=== PATIENT | female | born 1940 | race Caucasian/White ===

== ENCOUNTER 2019-11-16 08:40 | Outpatient (CLI) | payer MEDICARE, OTHER, SELFPAY ==
[2019-11-16 09:13] LABS: Hemoglobin A1C 6.6 % (<5.7)
[2019-11-16 09:17] LABS: Alanine Aminotransferase 16 U/L (4-35); Albumin Level 4.1 g/dL (3.5-5.1); Alkaline Phosphatase 69 U/L (38-126); Aspartate Amino Transferase 23 U/L (14-36); Bilirubin,Total 0.9 mg/dL (0.2-1.3); Blood Urea Nitrogen 17 mg/dL (7-17); Calcium 9.6 mg/dL (8.4-10.2); Carbon Dioxide 29 mmol/L (22-30); Chloride 103 mmol/L (98-107); Cholesterol 150 mg/dL (0-200); Estimated Glomerular Filt Rate 60; Glucose 107 mg/dL (65-105); HDL Direct 43 mg/dL; Potassium 4.4 mmol/L (3.4-5.0); Sodium 140 mmol/L (137-145); Triglycerides 161 mg/dL (<150)
[2019-11-16 09:29] LABS: LDL Cholesterol Direct 78 mg/dL
[2019-11-16 10:05] LABS: Vitamin D 25 Hydroxy 83.5 ng/mL
== END 2019-11-16 08:41 | disposition home or self-care (01) ==
PROVIDERS: PCP Internal Medicine; Visit Provider Nurse Practitioner
DX: R73.02 Impaired glucose tolerance (oral) (principal); E03.9 Hypothyroidism, unspecified; E78.00 Pure hypercholesterolemia, unspecified; E55.9 Vitamin D deficiency, unspecified
CPT/HCPCS: 36415; 80053; 80061; 82306; 83036; 84443

== ENCOUNTER 2019-12-02 07:44 | Outpatient (CLI) | payer MEDICARE, OTHER, SELFPAY ==
--- NOTE | ~2019-12-02 | DEXA_ITS ---
Bone Density Report Name: Mehnaz Jara Age: 79 Sex: Female Ethnicity: White Date of : 1940 Indication: osteopenia; monitoring treatment; height loss; hysterectomy; postmenopausal Referring Provider: JONELLE ROE Study: Bone densitometry was performed. Exam Date: December 02, 2019 Accession number: [id number] Bone Density: Region BMD T-score Z-score Classification AP Spine (L1, L2, L3) 0.809 -1.9 0.7 Osteopenia Femoral Neck (Left) 0.483 -3.3 -1.0 Osteoporosis Total Hip (Left) 0.699 -2.0 0.1 Osteopenia Total Hip Bilateral Avg 0.732 -1.8 0.4 Osteopenia Femoral Neck (Right) 0.532 -2.9 -0.5 Osteoporosis Total Hip (Right) 0.763 -1.5 0.6 Osteopenia World Health Organization criteria for BMD impression classify patients as: Normal (T-score at or above -1.0), Osteopenia (T-score between -1.0 and -2.5), or Osteoporosis (T-score at or below -2.5). 10-year Fracture Risk: FRAX not reported because: Some T-score for Spine Total or Hip Total or Femoral Neck at or below -2.5 Treated for osteoporosis Previous Exams: Region Exam Age BMD T-score BMD Change BMD Change Date g/cm2 vs Baseline vs Previous AP Spine(L1, L2, L3) 12/02/2019 79 0.809 -1.9 -0.010(-1.2%)# 0.027(3.4%)* 09/25/2015 75 0.782 -2.1 -0.037(-4.5%)# -0.005(-0.6%)# 05/17/2013 73 0.787 -2.1 -0.032(-3.9%)# -0.040(-4.9%)# 02/07/2011 71 0.827 -1.7 0.008(1.0%) 0.008(1.0%) 09/14/2007 67 0.819 -1.8 Total Hip(Left) 12/02/2019 79 0.699 -2.0 -0.013(-1.9%)# -0.016(-2.2%) 09/25/2015 75 0.714 -1.9 0.002(0.3%)# -0.020(-2.8%)# 05/17/2013 73 0.735 -1.7 0.023(3.2%)# 0.018(2.6%)# 02/07/2011 71 0.716 -1.9 0.004(0.6%) 0.004(0.6%) 09/14/2007 67 0.712 -1.9 Total Hip(Right) 12/02/2019 79 0.763 -1.5 0.064(9.2%)# 0.020(2.8%) 09/25/2015 75 0.743 -1.6 0.044(6.3%)# -0.019(-2.5%)# 05/17/2013 73 0.762 -1.5 0.063(9.1%)# 0.068(9.9%)# 02/07/2011 71 0.694 -2.0 -0.005(-0.7%) -0.005(-0.7%) 09/14/2007 67 0.698 -2.0 *Denotes significance at 95% confidence level, LSC for AP Spine = 0.022 g/cm2, LSC for Total Hip = 0.027 g/cm2 Clinical Information Provided by Patient: Is being treated for osteoporosis Has used the following medications: Actonel (i.e. risedronate), Vitamin D, Calcium Has the following medical conditions: Hysterectomy Patient maximum height was 63 Menopause Age: 49 No regular weight bearing exercise Onset of menses at age 13 Number of children 2 ------
== END 2019-12-02 07:45 | disposition home or self-care (01) ==
LOC: ANHIMG 07:49
PROVIDERS: PCP Internal Medicine; Visit Provider Internal Medicine
DX: Z78.0 Asymptomatic menopausal state (principal); M85.852 Other specified disorders of bone density and structure, left thigh; M85.851 Other specified disorders of bone density and structure, right thigh; M85.88 Other specified disorders of bone density and structure, other site
CPT/HCPCS: 77080

== ENCOUNTER 2020-05-30 08:25 | Outpatient (CLI) | payer MEDICARE, OTHER, SELFPAY ==
[2020-05-30 09:06] LABS: Alanine Aminotransferase 21 U/L (4-35); Albumin Level 4.1 g/dL (3.5-5.1); Alkaline Phosphatase 63 U/L (38-126); Anion Gap 6 mmol/L (8-16); Aspartate Amino Transferase 28 U/L (14-36); Blood Urea Nitrogen 19 mg/dL (7-17); Calcium 9.4 mg/dL (8.4-10.2); Carbon Dioxide 30 mmol/L (22-30); Chloride 106 mmol/L (98-107); Cholesterol 147 mg/dL (0-200); Estimated Glomerular Filt Rate > 60; Glucose 128 mg/dL (65-105); HDL Direct 43 mg/dL; Potassium 3.9 mmol/L (3.4-5.0); Sodium 142 mmol/L (137-145); Triglycerides 122 mg/dL (<150)
[2020-05-30 09:15] LABS: Hemoglobin A1C 5.9 % (<5.7)
[2020-05-30 09:17] LABS: LDL Cholesterol Direct 79 mg/dL
== END 2020-05-30 08:26 | disposition home or self-care (01) ==
PROVIDERS: PCP Internal Medicine; Visit Provider Internal Medicine
DX: R73.02 Impaired glucose tolerance (oral) (principal); I10 Essential (primary) hypertension; E03.9 Hypothyroidism, unspecified; E78.5 Hyperlipidemia, unspecified; E55.9 Vitamin D deficiency, unspecified; Z79.899 Other long term (current) drug therapy
CPT/HCPCS: 36415; 80053; 80061; 82306; 83036; 84443

== ENCOUNTER 2020-11-23 09:38 | Outpatient (CLI) | payer MEDICARE, SELFPAY ==
[2020-11-23 10:16] LABS: Hemoglobin A1C 6.1 % (<5.7)
[2020-11-23 10:18] LABS: Alanine Aminotransferase 19 U/L (4-35); Alkaline Phosphatase 63 U/L (38-126); Anion Gap 7 mmol/L (8-16); Aspartate Amino Transferase 29 U/L (14-36); Bilirubin,Total 0.8 mg/dL (0.2-1.3); Blood Urea Nitrogen 13 mg/dL (7-17); Calcium 9.4 mg/dL (8.4-10.2); Carbon Dioxide 28 mmol/L (22-30); Chloride 108 mmol/L (98-107); Cholesterol 140 mg/dL (0-200); Estimated Glomerular Filt Rate 60; Glucose 95 mg/dL (65-105); HDL Direct 47 mg/dL; Sodium 143 mmol/L (137-145); Triglycerides 143 mg/dL (<150)
[2020-11-23 10:28] LABS: LDL Cholesterol Direct 60 mg/dL
== END 2020-11-23 09:39 | disposition home or self-care (01) ==
PROVIDERS: PCP Internal Medicine; Visit Provider Nurse Practitioner
DX: E78.5 Hyperlipidemia, unspecified (principal); R73.02 Impaired glucose tolerance (oral)
CPT/HCPCS: 36415; 80053; 80061; 83036

== ENCOUNTER 2020-12-31 10:59 | Emergency (ER) | payer MEDICARE, SELFPAY ==
[2020-12-31 11:10] VITALS: BP 136/60; PULSE 78; RESP 16; TEMP 36.9; O2SAT 92
[2020-12-31 11:18] VITALS: O2SAT 94
--- NOTE | 2020-12-31 11:20 | ED.GENADULT ---
HPI - General Adult General Chief complaint: Upper Respiratory Infection Stated complaint: cough Time Seen by Provider: 12/31/20 11:17 Source: patient and RN notes reviewed Mode of arrival: ambulatory Limitations: no limitations History of Present Illness HPI narrative: 80-year-old female presents with complains of cough for the past 4 days. Mehnaz reports steady dry cough. Vicks vapor rub without relief. Constant dry cough without chest congestion. No rhinorrhea. Nasal congestion. Denies sore throat. No high fevers, drooling, neck or throat swelling. No chest pain, wheezing, or shortness of breath. Denies nausea, vomiting, and abdominal pain. Tolerating liquids well. Remains active. The patient reports she has not been diagnosed with COVID-19. The patient reports she received 2 Moderna COVID-19 vaccines. The patient reports she is not waiting for the results of a COVID-19 lab test. The patient reports she does not have weakness, fatigue, or myalgia. The patient reports she does not have any loss of taste and diarrhea. Recently travelled to [place]. Denies concerns for COVID-19 or exposures. At this time, the patient is not suspected of having COVID-19. Some parts of this dictation were generated by voice recognition software and may contain typographical and/or grammatical inaccuracies. Related Data Home Medications Medication Instructions Recorded Confirmed cholecalciferol (vitamin D3) 50 2,000 unit PO DAILY 06/15/19 12/31/20 mcg (2,000 unit) tablet uxisgekx-tbk-uvqta acid 0.4 1 tablet PO DAILY 06/15/19 12/31/20 mg-lycopene 300 mcg-lutein 250 mcg tablet vit C,E,zinc,copper-hggac2i 250 1 cap PO DAILY 06/15/19 12/31/20 mg-lutein 5 mg-zeaxanthin 1 mg capsule amlodipine [Norvasc] 10 mg PO DAILY 12/31/20 12/31/20 levothyroxine 1 mcg PO DAILY 12/31/20 12/31/20 rosuvastatin [Crestor] 10 mg PO DAILY 12/31/20 12/31/20 valsartan 1 mg PO DAILY 12/31/20 12/31/20 Allergies Allergy/AdvReac Type Severity Reaction Status Date / Time IWONA Inhibitors Allergy Unknown Cough Verified 12/31/20 11:20 Review of Systems Review of Systems: Narrative: CONSTITUTIONAL: Denies fever, sweats, chills, fatigue. EYES: Denies visual changes, redness, discharge. ENT: Complains of congestion. Denies rhinorrhea, sore throat, otalgia. CARDIOVASCULAR: Denies chest pain, palpitations, edema. RESPIRATORY: Denies dyspnea, wheezing. Complaints of dry cough. GASTROINTESTINAL: Denies abdominal pain, nausea, vomiting, diarrhea. GENITOURINARY: Denies dysuria, hematuria, abnormal discharge. SKIN: Denies rash or itching. MUSCULOSKELETAL: Denies acute back pain, joint pain, or myalgia. NEUROLOGIC: Denies numbness or focal weakness. PSYCHIATRIC: Denies anxiety or depression. All other systems reviewed are negative, except as documented in HPI and below. [facility] Past Medical History Medical History Bronchitis Depression History of blood transfusion HTN (hypertension) Hyperlipidemia Osteoporosis Post-menopausal Surgical History Surgical History History of hysterectomy Status post cervical polyp removal Family History Family History Mother Family history of rheumatoid arthritis Family history of Alzheimer's disease, Onset Age: 92 Family history of malignant neoplasm of breast in first degree relative Patient's mother is Family history of malignant neoplasm of breast Sibling Family history of osteoarthritis Father Family history of Parkinson's disease Other Hypertension Social History Social History Smoking packs per day: 1 Smoking cigarettes per day: 20.0 Years smoked: 60 Smoking pack-years: 60.00 Smoking status: Former smoker Tobacco type: cigarettes Second hand toba
== END 2020-12-31 11:40 | disposition home or self-care (01) ==
PROVIDERS: Emergency Provider Nurse Practitioner Family; PCP Internal Medicine
DX: J40 Bronchitis, not specified as acute or chronic (principal); Z87.891 Personal history of nicotine dependence; I10 Essential (primary) hypertension; E78.5 Hyperlipidemia, unspecified; M81.0 Age-related osteoporosis without current pathological fracture
CPT/HCPCS: 99213; G0463

== ENCOUNTER 2021-01-17 17:06 | Outpatient (CLI) | payer MEDICARE, SELFPAY ==
--- NOTE | ~2021-01-17 | XR_ITS ---
EXAMINATION: XR chest 2V DATE: 01/17/2021 17:31 INDICATION: Cough and congestion. TECHNIQUE: Frontal and lateral views of the chest were obtained. COMPARISON: Chest 2 views 06/03/2019, chest CT 04/21/2015 FINDINGS: There is a calcified pleural plaque in left midlung zone. No pleural effusion or pneumothor ax. The heart size is normal. There are prominent paracardial fat pads. IMPRESSION: 1. No acute cardiopulmonary disease. Reviewed, dictated and finalized at location A.
== END 2021-01-17 17:07 | disposition home or self-care (01) ==
LOC: ANHIMG 17:08
PROVIDERS: PCP Internal Medicine; Visit Provider Nurse Practitioner
DX: R05 Cough (principal); J45.909 Unspecified asthma, uncomplicated
CPT/HCPCS: 71046

== ENCOUNTER 2021-05-25 09:42 | Outpatient (CLI) | payer MEDICARE, SELFPAY ==
[2021-05-25 10:35] LABS: Alanine Aminotransferase 24 U/L (4-35); Albumin Level 4.1 g/dL (3.5-5.1); Alkaline Phosphatase 81 U/L (38-126); Anion Gap 10 mmol/L (8-16); Aspartate Amino Transferase 32 U/L (14-36); Bilirubin,Total 0.6 mg/dL (0.2-1.3); Blood Urea Nitrogen 16 mg/dL (7-17); Calcium 9.1 mg/dL (8.4-10.2); Carbon Dioxide 27 mmol/L (22-30); Chloride 105 mmol/L (98-107); Cholesterol 155 mg/dL (0-200); Estimated Glomerular Filt Rate > 60; Glucose 113 mg/dL (65-110); HDL Direct 40 mg/dL; Potassium 3.7 mmol/L (3.4-5.0); Sodium 142 mmol/L (137-145); Triglycerides 168 mg/dL (<150)
[2021-05-25 10:47] LABS: LDL Cholesterol Direct 75 mg/dL
[2021-05-25 10:53] LABS: Vitamin D 25 Hydroxy 73.2 ng/mL
== END 2021-05-25 09:43 | disposition home or self-care (01) ==
LOC: ANHLAB 09:46
PROVIDERS: PCP Internal Medicine; Visit Provider Internal Medicine
DX: E03.9 Hypothyroidism, unspecified (principal); I10 Essential (primary) hypertension; E55.9 Vitamin D deficiency, unspecified; R73.02 Impaired glucose tolerance (oral); E78.5 Hyperlipidemia, unspecified
CPT/HCPCS: 36415; 80053; 80061; 82306; 83036; 84443

== ENCOUNTER 2021-11-22 13:48 | Emergency (ER) | payer MEDICARE, SELFPAY ==
[2021-11-22] VITALS (21 sets, daily range): BP systolic 152–166; BP diastolic 68–77; PULSE 58–80; RESP 12–28; TEMP 36.4–37.1; O2SAT 92–98
--- NOTE | 2021-11-22 13:58 | ECG_ITS ---
Measurements Intervals [place] Rate: 80 P: 17 NE: 144 QRS: -3 QRSD: 85 T: -4 QT: 321 QTc: 372 Interpretive Statements SINUS RHYTHM NONSPECIFIC ST & T-WAVE ABNORMALITY NO PREVIOUS ECG AVAILABLE FOR COMPARISON Electronically Signed On 11-22-2021 20:38:20 CDT by Nesha Ahuja M.D.
--- NOTE | 2021-11-22 14:00 | PC.NURSE ---
EMS stated that patient had left sided facial droop and slurred speech. in room stating this is her normal speech and presentation. EDP Lisa aware.
--- NOTE | 2021-11-22 14:18 | ED.CHESTPAIN ---
HPI - Chest Pain General Chief Complaint: Nausea/Vomiting/Diarrhea Stated Complaint: n/v/d Time Seen by Provider: 11/22/21 14:06 History of Present Illness HPI narrative: Pt says she has had steady CP since 0700 yesterday. Pt says it has been constant but waxes and wanes in severity. Pt has no cardiac history. Pt also has the shakes and thinks she is withdrawing form alcohol. Pt drinks about a 1/2 bottle of vodka or 8 Truly's a day. Pt did have a drink this morning. Pt has been through rehab in the past and would like help if possible. Pt denies injury. Related Data Home Medications Medication Instructions Recorded Confirmed cholecalciferol (vitamin D3) 50 2,000 unit PO DAILY 06/15/19 05/31/21 mcg (2,000 unit) tablet mvqnjbqj-nke-uqehz acid 0.4 1 tablet PO DAILY 06/15/19 05/31/21 mg-lycopene 300 mcg-lutein 250 mcg tablet (Centrum Silver) vit C,E,zinc,copper-jyxqd6a 250 1 cap PO DAILY 06/15/19 05/31/21 mg-lutein 5 mg-zeaxanthin 1 mg capsule (Ocuvite Adult 50 Plus) Allergies Allergy/AdvReac Type Severity Reaction Status Date / Time IWONA Inhibitors Allergy Unknown Cough Verified 05/31/21 07:50 Review of Systems Review of Systems: All systems reviewed & are unremarkable except as noted in HPI and below PMFSH Past Medical History Medical History Bronchitis Depression History of blood transfusion HTN (hypertension) Hyperlipidemia Osteoporosis Post-menopausal Surgical History Surgical History History of hysterectomy Status post cervical polyp removal Family History Family History Mother Family history of rheumatoid arthritis Family history of Alzheimer's disease, Onset Age: 92 Family history of malignant neoplasm of breast in first degree relative Patient's mother is Family history of malignant neoplasm of breast Sibling Family history of osteoarthritis Father Family history of Parkinson's disease Other Hypertension Social History Social History Smoking packs per day: 1 Smoking cigarettes per day: 20.0 Years smoked: 60 Smoking pack-years: 60.00 Tobacco type: cigarettes Second hand tobacco smoke exposure: Yes Smoking end date: 06/16/94 Alcohol intake: current Alcohol use details: Social Gender identity (if verbalized by the patient): Female Exam Const: General: healthy appearing and no acute distress Nutritional Appearance: well nourished Orientation/consciousness: patient oriented x3 Limitations: no limitations HENMT: Head: normal to inspection Eyes: Conjunctivae: conjunctivae normal Pupils: Equal, round and reactive pupils present EOM: EOMs intact bilaterally Neck: Neck: normal visual inspection Chest: Chest palpation & inspection: normal inspection of the chest Resp: Effort & Inspection: normal respiratory effort Auscultation: clear to auscultation bilaterally Cardio: Rate: tachycardic Rhythm: regular rhythm GI: GI Palp: Yes Soft to palpation Auscultation: normal bowel sounds Skin: General skin exam: normal color Rashes: no rashes Neuro: General: patient oriented x3, moves all extremities, no meningeal signs, no focal motor deficits and CN's II-XI intact bilaterally Cranial nerves: Yes Nystagmus not present Speech: normal speech Gait exam (Neuro): Normal gait present Extrem: General: normal to inspection and no clubbing, cyanosis or edema Other: some bruising to legs Psych: Mental Status: mental status grossly normal Affect: Anxious affect present Attitude: cooperative Course Vital Signs Vital signs: Vital Signs Temperature 97.6 F 11/22/21 13:51 Pulse Rate 80 11/22/21 13:51 Respiratory Rate 20 11/22/21 13:51 Pulse Oximetry 92 11/22/21 13:51 Oxygen Delivery Room Air 11/22/21
--- NOTE | 2021-11-22 14:33 | ED.NAVMDI ---
HPI - Nausea/Vomiting/Diarrhea General Chief complaint: Nausea/Vomiting/Diarrhea Stated complaint: n/v/d Time Seen by Provider: 11/22/21 14:06 History of Present Illness HPI Narrative: Pt presents with numerous episodes of vomiting and diarrhea since last night. Pt denies fever or urinary symptoms. Pt has some intermittent abdominal cramping but none now. Related Data Home Medications Medication Instructions Recorded Confirmed cholecalciferol (vitamin D3) 50 2,000 unit PO DAILY 06/15/19 05/31/21 mcg (2,000 unit) tablet uwdnbofx-xxj-snojc acid 0.4 1 tablet PO DAILY 06/15/19 05/31/21 mg-lycopene 300 mcg-lutein 250 mcg tablet (Centrum Silver) vit C,E,zinc,copper-giefo4s 250 1 cap PO DAILY 06/15/19 05/31/21 mg-lutein 5 mg-zeaxanthin 1 mg capsule (Ocuvite Adult 50 Plus) Allergies Allergy/AdvReac Type Severity Reaction Status Date / Time IWONA Inhibitors Allergy Unknown Cough Verified 05/31/21 07:50 Review of Systems Review of Systems: All systems reviewed & are unremarkable except as noted in HPI and below PMFSH Past Medical History Medical History Bronchitis Depression History of blood transfusion HTN (hypertension) Hyperlipidemia Osteoporosis Post-menopausal Surgical History Surgical History History of hysterectomy Status post cervical polyp removal Family History Family History Mother Family history of rheumatoid arthritis Family history of Alzheimer's disease, Onset Age: 92 Family history of malignant neoplasm of breast in first degree relative Patient's mother is Family history of malignant neoplasm of breast Sibling Family history of osteoarthritis Father Family history of Parkinson's disease Other Hypertension Social History Social History Smoking packs per day: 1 Smoking cigarettes per day: 20.0 Years smoked: 60 Smoking pack-years: 60.00 Tobacco type: cigarettes Second hand tobacco smoke exposure: Yes Smoking end date: 06/16/94 Alcohol intake: current Alcohol use details: Social Gender identity (if verbalized by the patient): Female Exam Const: General: healthy appearing and no acute distress Nutritional Appearance: well nourished Orientation/consciousness: patient oriented x3 Limitations: no limitations HENMT: Mouth: Yes Normal oral and palatal mucosa present Resp: Effort & Inspection: normal respiratory effort Auscultation: clear to auscultation bilaterally Cardio: Rate: regular rate Rhythm: regular rhythm GI: GI Palp: Yes Soft to palpation Auscultation: normal bowel sounds Skin: General skin exam: normal color Rashes: no rashes Wounds: no wounds Neuro: General: patient oriented x3, moves all extremities, no meningeal signs, no focal motor deficits and CN's II-XI intact bilaterally Cranial nerves: Yes Nystagmus not present Speech: normal speech Extrem: General: normal to inspection Psych: Mental Status: mental status grossly normal Affect: normal affect Attitude: cooperative Course Vital Signs Vital signs: Vital Signs Temperature 97.6 F 11/22/21 13:51 Pulse Rate 80 11/22/21 13:51 Respiratory Rate 20 11/22/21 13:51 Pulse Oximetry 92 11/22/21 13:51 Oxygen Delivery Room Air 11/22/21 13:51 Temperature 98.7 F 11/22/21 18:41 Pulse Rate 74 11/22/21 18:41 Respiratory Rate 17 11/22/21 18:41 Blood Pressure 152/68 H 11/22/21 18:41 Pulse Oximetry 94 11/22/21 18:41 Oxygen Delivery Room Air 11/22/21 17:04 Oxygen Flow Rate 2 11/22/21 14:00 MDM - Nausea/Vomiting/Diarrhea Lab Data Result diagrams: 11/22/21 16:05 11/22/21 16:05 Labs: Lab Results 11/22/21 11/22/21 11/22/21 Range/Units 15:18 16:05 16:05 WBC 17.2 H (4.
[2021-11-22 15:27] LABS: Appearance Urine Clear (Clear); Bilirubin Urine Negative (Negative); Blood Urine 1+ (Negative); Color Urine Yellow (Yellow); Glucose Urine UA Negative (Negative); Ketones Urine 3+ mg/dL (Negative); Leukocyte Esterase Ur Trace LEU/UL (Negative); Nitrate Urine Positive (Negative); Protein Urine 2+ mg/dL (Negative); Urobilinogen Urine 0.2 mg/dL (<2.0)
[2021-11-22 15:36] LABS: Add Urine Microscopic? YES; Bacteria Urine Trace /hpf; Mucus Urine Rare /lpf; WBC Urine 16-20 /hpf
[2021-11-22 16:22] LABS: Basophils Percent Auto 0.2 % (0.2-1.2); Hematocrit 45.9 % (37.0-47.0); Immature Granulocyte Percent A 0.6 % (0-0.5); Lymphocytes Absolute Auto 0.85 K/mm3 (0.9-3.2); Lymphocytes Percent Auto 4.9 % (18.3-44.2); Mean Corpuscular HGB Conc 32.7 g/dl (32-36); Mean Corpuscular Hemoglobin 29.4 pg (26-34); Mean Platelet Volume 11.4 fl (7.4-10.4); Monocytes Absolute Auto 0.8 K/mm3 (0.1-0.6); Monocytes Percent Auto 4.8 % (2.6-8.5); Neutrophils Absolute Auto 15.4 K/mm3 (1.3-6.7); Neutrophils Percent Auto 89.5 % (45.5-73.1); Platelet Count Result 240 k/mm3 (150-375); Red Cell Distribution Width 14.8 % (11.5-14.5); White Blood Count 17.2 K/mm3 (4.5-10.0)
[2021-11-22 16:36] LABS: Alanine Aminotransferase 18 U/L (6-35); Albumin Level 4.8 g/dL (3.5-5.1); Alkaline Phosphatase 84 U/L (38-126); Anion Gap 9 mmol/L (8-16); Aspartate Amino Transferase 37 U/L (14-36); Bilirubin,Total 1.1 mg/dL (0.2-1.3); Blood Urea Nitrogen 14 mg/dL (7-17); Calcium 9.2 mg/dL (8.4-10.2); Carbon Dioxide 27 mmol/L (22-30); Chloride 103 mmol/L (98-107); Estimated CRCL calculation 58 ml/min; Estimated Glomerular Filt Rate > 60; Glucose 136 mg/dL (65-110); Lipase 95 U/L (23-300); Potassium 3.6 mmol/L (3.4-5.0); Sodium 139 mmol/L (137-145)
[2021-11-22] MEDS: SODIUM CHLORIDE 0.9% IV 1,000 ML 999 ML IV CONT (17:02)
[2021-11-22] MEDS: ONDANSETRON INJ 4 MG/2 ML VIAL IV PUSH (17:02)
== END 2021-11-22 18:51 | disposition home or self-care (01) ==
PROVIDERS: Emergency Medicine; Emergency Provider Emergency Medicine; PCP Internal Medicine
DX: K52.9 Noninfective gastroenteritis and colitis, unspecified (principal); I10 Essential (primary) hypertension; E78.5 Hyperlipidemia, unspecified; F17.210 Nicotine dependence, cigarettes, uncomplicated
CPT/HCPCS: 36415; 51701; 80053; 81001; 83690; 85025; 87086; 87147; 87181; 87186; 93005; 96361; 96374; 99284; J2405; J7030

== ENCOUNTER 2022-01-18 11:37 | Outpatient (NON) | payer MEDICARE, SELFPAY ==
[2022-01-18 12:11] LABS: Appearance Urine Turbid (Clear); Bilirubin Urine Negative (Negative); Blood Urine 1+ (Negative); Color Urine Yellow (Yellow); Glucose Urine UA Negative (Negative); Ketones Urine Negative (Negative); Leukocyte Esterase Ur 3+ LEU/UL (Negative); Nitrate Urine Negative (Negative); Protein Urine 2+ mg/dL (Negative); Urobilinogen Urine 0.2 mg/dL (<2.0); pH Urine 7.5 (5.0-9.0)
[2022-01-18 12:19] LABS: Bacteria Urine 3+ /hpf; Mucus Urine Rare /lpf; Squamous Epithelial Cell Urine Occasional /hpf (Few); Transitional Epi Cells Urine Rare /hpf (None Seen); WBC Clumps Urine Present /HPF; WBC Urine >75 /hpf
[2022-01-18 12:48] LABS: Add Urine Microscopic? YES
== END 2022-01-18 11:38 | disposition home or self-care (01) ==
PROVIDERS: PCP Internal Medicine; Visit Provider Internal Medicine
DX: R30.0 Dysuria (principal)
CPT/HCPCS: 81001; 87077; 87086; 87186

== ENCOUNTER 2022-03-20 08:00 | Outpatient (CLI) | payer MEDICARE, SELFPAY ==
[2022-03-20 08:39] LABS: Alanine Aminotransferase 17 U/L (6-35); Alkaline Phosphatase 75 U/L (38-126); Anion Gap 9 mmol/L (8-16); Aspartate Amino Transferase 25 U/L (14-36); Bilirubin,Total 1.2 mg/dL (0.2-1.3); Blood Urea Nitrogen 12 mg/dL (7-17); Calcium 9.5 mg/dL (8.4-10.2); Carbon Dioxide 30 mmol/L (22-30); Chloride 100 mmol/L (98-107); Cholesterol 168 mg/dL (0-200); Estimated Glomerular Filt Rate > 60; Glucose 105 mg/dL (65-110); HDL Direct 39 mg/dL; Potassium 3.9 mmol/L (3.4-5.0); Sodium 139 mmol/L (137-145); Triglycerides 185 mg/dL (<150)
[2022-03-20 08:40] LABS: Hemoglobin A1C 5.9 % (<5.7)
[2022-03-20 08:51] LABS: LDL Cholesterol Direct 86 mg/dL
== END 2022-03-20 08:01 | disposition home or self-care (01) ==
PROVIDERS: PCP Internal Medicine; Visit Provider Internal Medicine
DX: E03.9 Hypothyroidism, unspecified (principal); R73.02 Impaired glucose tolerance (oral); E78.5 Hyperlipidemia, unspecified; R60.9 Edema, unspecified
CPT/HCPCS: 36415; 80053; 80061; 83036; 84443

== ENCOUNTER 2022-07-22 07:30 | Outpatient (RCR) | payer MEDICARE, SELFPAY ==
--- NOTE | 2022-04-25 11:32 | OTOPEVAL1 ---
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 Patient spent several days at a [facility] then went home and began home health until a week ago. Patient reports L arm has little control and is difficult to complete functional and daily tasks such as tear toilet paper, grasp items, holding onto items. Patient reports wants to be able to get back to cooking and baking tasks. Reported Pain Level Pain Score 0: Self Report Assessment OT Clinical Summary Mehnaz is a 82 year old female who presents to Outpatient OT following a CVA in October 2021. Patient reports decreased control of L UE which causes difficulties with functional and daily tasks such as cooking. Patient demonstrated decreased strength in L UE, decreased coordination measured through the 9-hole peg test. Patient would benefit from skilled OT for UE strengthening, fine/gross motor coordination tasks, HEP instruction in order to optimize functional use of L UE. Plan of Care Interventions Therapeutic Exercise,Neuro Re-education, Therapeutic Activities,Self-Care/Home Management OT Services Indicated Yes Treatment Frequency and 1x/week for 4 weeks Duration These treatments will address the objective and functional deficits as defined above. The patient will be advanced safely and appropriately in order for the patient to progress towards his/her prior level of function. Additional exercises will be introduced and as well as a comprehensive home exercise program upon discharge, if needed, ?to ensure carryover of functional gains achieved in the clinic. This treatment plan has been reviewed and agreement upon by the patient.
--- NOTE | 2022-04-25 14:52 | STOPEVAL1 ---
Assessment and note entered by Janis Chow [employer] Evaluation Information Assessment Status Evaluation Assessment Status Evaluation Subjective Information Patient reported that she feels she is doing well. stated that he was told by OT that Speech Therapy would be able to help patient to remember to move her left leg forward when walking. Reported Pain Level Pain Score 0: Self Report Pain Score 0: Self Report Assessment ST Clinical Summary This 82 year old female patient was seen for a Cognitive Evaluation following CVA resulting in cognitive/memory deficits. Patient had received Home Health services including Speech Therapy for orientation/memory. They report they feel she made great progress during her home health episode. She returned today for PT/OT/ST evaluations. reports that they were told that patient is able to lift her leg and move it forward when sitting and exercising but that maybe she is not able to remember to move her leg forward or the messages between her brain and leg are not connecting to assist with walking. Today the patient performed at 90% or better for immediate memory including reciting number series, following complex directions, and recalling information in short stories, problem solving, sequencing, and sorting/categorizing words, and functional math. Patient will be seen twice weekly for four weeks to address Orientation to Time and Place. This was addressed in the home setting and therapist had requested family either give patient access to a calendar or white board that can be updated daily in large print as patient was having visual difficulties. Family often remembered to update the white board and patient would be dependent upon it, but oriented to time. When family did not update the white board, patient would assume the date that was present was correct. Today the patient knew the day of the week and the year, eventually self-correcting the month but not aware of the actual date. This will be addressed in future sessions in order to assist with independent orientation to time. Therapy will also focus on increasing use of memory strategies and environmental cues
--- NOTE | 2022-04-25 15:20 | PTOPEVAL1 ---
Assessment and note entered by Fabrice Garcia, PT Evaluation Information Assessment Status Evaluation Diagnosis non-traumatic intracranial hemorrhage Onset 11/04 Subjective Information Patient reports she has been doing well with her home health, but needs to be able to move around more and walk and do transfers without her helping her as much. Reported Pain Level Pain Score 0: Self Report Pain Score 0: Self Report Pain Score 0: Self Report Assessment PT Clinical Summary Mehnaz is an 82 year old female coming into the clinic for functional mobility and strengthening after a CVA in October of this year. Patient is currently mainly getting around in a WC with pushing her and helping with transfers. Patient only walking 8 feet with next to her and a WC follow. Patient has weakness in the L ankle invertors, decreased balance and endurance and in walking decreased stride length of the L LE and no heel strike. Patient should benefit from skilled physical therapy for ankle strengthening, balance and endurance training, along with gait and transfer training. Patient and could also use education on transfers and body mechanics. Plan of Care Interventions Electrical Stimulation,Gait Training,Manual Therapy,Neuro Re-education,Patient/Caregiver Education,Therapeutic Activities,Therapeutic Exercise PT Services Indicated Yes Treatment Frequency and 2x/wk for 4 weeks Duration These treatments will address the objective and functional deficits as defined above. The patient will be advanced safely and appropriately in order for the patient to progress towards his/her prior level of function. Additional exercises will be introduced and as well as a comprehensive home exercise program upon discharge, if needed, ?to ensure carryover of functional gains achieved in the clinic. This treatment plan has been reviewed and agreement upon by the patient.
--- NOTE | 2022-05-20 09:54 | OTOPPROG ---
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 Patient has attended Outpatient OT for x4 weeks. Patient reports L arm has a little more control than the start of OT, reports does not feel like she will wack people as much. Patient reports it is starting to get easier to use L hand such as tearing toilet paper. Assessment OT Clinical Summary Mehnaz is a 82 year old female who presents to Outpatient OT for a re-evaluation following a CVA in October 2021. Patient reports feels some increased strength in L arm and some daily tasks are easier to complete with L hand. Patient demonstrated improvements with L UE strength, pin or clip fastener/lateral pinch strength. Patients fine motor coordination measured through 9-hole peg test decreased by 4 seconds. Patient would benefit from continued skilled OT for UE strengthening, fine/gross motor coordination tasks, HEP instruction in order to optimize functional use of L UE. Plan of Care Interventions Therapeutic Exercise,Neuro Re-education, Therapeutic Activities,Self-Care/Home Management OT Services Indicated Yes Treatment Frequency and 1x/week for 4 weeks Duration These treatments will address the objective and functional deficits as defined above. The patient will be advanced safely and appropriately in order for the patient to progress towards his/her prior level of function. Additional exercises will be introduced and as well as a comprehensive home exercise program upon discharge, if needed, ?to ensure carryover of functional gains achieved in the clinic. This treatment plan has been reviewed and agreement upon by the patient.
--- NOTE | 2022-05-22 13:13 | PTOPREEVAL ---
Assessment and note entered by Fabrice Garcia, PT Evaluation Information Assessment Status Re-evaluation Diagnosis non-traumatic intracranial hemorrhage Onset October 2021 Subjective Information Patient reports her L hand and foot still do not want to cooperate with her as well as she would like, She does reports she is doing more with her exercises and getting around her help although she still needs her husbands help. Reported Pain Level Pain Score 0: Self Report Assessment PT Clinical Summary Mehnaz has been coming to physical therapy since April 25. She has attended 7 visits along with sessions with occupational and speech therapy . She has met walking distance goal and L ankle strength goal. Patient and has new goals to help her go to the [employer] and go to and from the bathroom with less assistance. I believe that those goals are attainable and will provide the patient with better quality of life. Plan of Care Interventions Electrical Stimulation,Gait Training,Manual Therapy,Neuro Re-education,Patient/Caregiver Education,Therapeutic Activities,Therapeutic Exercise,Ultrasound PT Services Indicated Yes Treatment Frequency and 2x/wk for 4 weeks Duration These treatments will address the objective and functional deficits as defined above. The patient will be advanced safely and appropriately in order for the patient to progress towards his/her prior level of function. Additional exercises will be introduced and as well as a comprehensive home exercise program upon discharge, if needed, ?to ensure carryover of functional gains achieved in the clinic. This treatment plan has been reviewed and agreement upon by the patient.
--- NOTE | 2022-05-22 13:27 | STOPDC ---
Assessment and note entered by JACQUELIN Hernandez Evaluation Information Assessment Status Discharge Assessment Status Re-evaluation Reported Pain Level Pain Score 0: Self Report Pain Score 0: Self Report Assessment ST Clinical Summary TREATMENT NOTE AND DISCHARGE SUMMARY This patient was seen fro a final treatment session focusing on memory, temporal orientation, and attention to tasks. Patient was cooperative with all therapy tasks and continued to make progress until discharge. She achieved all goals for temporal orientation, only having difficulty recalling the exact time from beginning to end of session, for example. Patient also exhibited good ability to focus on a task with distraction by therapist and to be able to divide attention between two tasks. Of note was increased response time required when being distracted or asked to switch attention from one task to another. Patient is being discharged with all goals achieved and minimal to no cueing/assistance required by therapist. Plan of Care ST Services Indicated No
--- NOTE | 2022-06-18 12:44 | OTOPDC ---
Assessment and note entered by KOFI Torres/Dom Evaluation Information Assessment Status Discharge Diagnosis CVA Subjective Information Patient presents to OT after a CVA in October 2021 with L side deficits. Patient reports L arm is less violent able to control L UE easier with daily tasks such as making the bed, assisting with folding laundry is becoming easier. Patient reports using L UE for functional tasks has become much easier including donning pants, donning shoes is easier. Reported Pain Level Pain Score 1: Self Report Assessment OT Clinical Summary Mehnaz is a 82 year old female who presents to Outpatient OT for a re-evaluation following a CVA in October 2021. Patient reports functional use of L UE has improved significantly with daily tasks. Patient demonstrated improvements with L UE strength, can filler/richardson pinch strength. Patients fine motor coordination measured through 9-hole peg test improved from 73 seconds to 58 seconds. Patient is pleased with progress through OT. Plan is to discharge patient today from skilled OT with patient independent with HEP. Plan of Care OT Services Indicated No
--- NOTE | 2022-06-20 16:06 | PTOPREEVAL ---
Assessment and note entered by Fabrice Garcia, PT Evaluation Information Assessment Status Re-evaluation Diagnosis non-traumatic intracranial hemorrhage Onset October 2021 Subjective Information Patient and report she is walking more in their home with the walker although the still brings the walker behind her. They even tried walking hand hold only. That did not go well and was a MAX A effort for both of them. Patient reports she still has not made it to her hair salon yet, which was her goal for last re- evaluation. Reported Pain Level Pain Score 0: Self Report Assessment PT Clinical Summary Mehnaz has been coming to the clinic for weakness and decreased functional mobility since 04/25/22. Starting with walking 8 feet MOD A patient has progressed to walking almost community ambulation distances at [facility] and standby assistance. I feel she has made good improvements, but needs to improve endurance and work more on caregiver training during session to have him walk and work with patient for progression to home exercise program. Plan of Care Interventions Electrical Stimulation,Gait Training,Hot Pack/Cold Pack,Manual Therapy,Neuro Re-education,Patient/ Caregiver Education,Therapeutic Activities, Therapeutic Exercise PT Services Indicated Yes Treatment Frequency and 2x/wk for 4 weeks Duration These treatments will address the objective and functional deficits as defined above. The patient will be advanced safely and appropriately in order for the patient to progress towards his/her prior level of function. Additional exercises will be introduced and as well as a comprehensive home exercise program upon discharge, if needed, ?to ensure carryover of functional gains achieved in the clinic. This treatment plan has been reviewed and agreement upon by the patient.
== END 2022-07-24 23:59 | disposition home or self-care (01) ==
LOC: ANHPT 07:30
PROVIDERS: PCP Internal Medicine; Visit Provider Internal Medicine
DX: I61.4 Nontraumatic intracerebral hemorrhage in cerebellum (principal); I69.311 Memory deficit following cerebral infarction; I69.319 Unspecified symptoms and signs involving cognitive functions following cerebral infarction
CPT/HCPCS: 92507; 92523; 97110; 97112; 97116; 97161; 97165; 97530

== ENCOUNTER 2022-08-15 10:00 | Outpatient (RCR) | payer MEDICARE, SELFPAY ==
--- NOTE | 2022-08-15 12:22 | PTOPDC ---
Assessment and note entered by Fabrice Garcia, PT Evaluation Information Assessment Status Discharge Diagnosis Non-Traumatic intracranial hemorrhage Onset October 2021 Subjective Information Patient and reports that she is still having trouble with getting in and out of bed, pulling up and down pants in bathroom. Patient is walking more and her hairstylist can do a home visit to cut her hair. Reported Pain Level Pain Score 0: Self Report Assessment PT Clinical Summary Patient started therapy back in March of 2022 and progressed from walking 8' MAX A to ambulating 200'+ with CGA and wheeled walker. Patient has made a lot of progress and met all of her goals. Patient's main issue now is that her and her report issues doing activities at home and when doing them here she is standby, but at home is MOD A. I feel it is a good time to discharge her from outpatient physical therapy and go back to home health to work on house specific issues as we cannot reproduce them here. I think she can become standby in the house which would take a lot of stress off of her and also that would give her more independence and privacy that she wants. Discharged from skilled outpatient physical therapy at this time. Recommend Home health physical and occupational therapy. Plan of Care PT Services Indicated No Treatment Frequency and discharged form skilled physical therapy. Duration
== END 2022-10-14 10:42 | disposition home or self-care (01) ==
LOC: ANHPT 10:00
PROVIDERS: PCP Internal Medicine; Visit Provider Internal Medicine
DX: I61.4 Nontraumatic intracerebral hemorrhage in cerebellum (principal); I69.311 Memory deficit following cerebral infarction; I69.319 Unspecified symptoms and signs involving cognitive functions following cerebral infarction
CPT/HCPCS: 97110; 97112; 97116; 97530

== ENCOUNTER 2022-09-13 08:27 | Outpatient (CLI) | payer MEDICARE, SELFPAY ==
[2022-09-13 09:36] LABS: Alanine Aminotransferase 16 U/L (6-35); Albumin Level 4.4 g/dL (3.5-5.1); Alkaline Phosphatase 80 U/L (38-126); Anion Gap 7 mmol/L (8-16); Aspartate Amino Transferase 23 U/L (14-36); Bilirubin,Total 0.9 mg/dL (0.2-1.3); Blood Urea Nitrogen 14 mg/dL (7-17); Calcium 8.8 mg/dL (8.4-10.2); Carbon Dioxide 32 mmol/L (22-30); Chloride 104 mmol/L (98-107); Cholesterol 169 mg/dL (0-200); Estimated Glomerular Filt Rate > 60; Glucose 95 mg/dL (65-110); HDL Direct 43 mg/dL; Potassium 3.8 mmol/L (3.4-5.0); Sodium 143 mmol/L (137-145); Triglycerides 181 mg/dL (<150)
[2022-09-13 09:48] LABS: LDL Cholesterol Direct 81 mg/dL
== END 2022-09-13 08:28 | disposition home or self-care (01) ==
LOC: ANHLAB 08:28
PROVIDERS: PCP Internal Medicine; Visit Provider Internal Medicine
DX: E03.9 Hypothyroidism, unspecified (principal); E78.5 Hyperlipidemia, unspecified; R73.02 Impaired glucose tolerance (oral); I10 Essential (primary) hypertension
CPT/HCPCS: 36415; 80053; 80061; 83036; 84443

== ENCOUNTER 2022-10-12 10:25 | Outpatient (CLI) | payer MEDICARE, SELFPAY ==
--- NOTE | ~2022-10-12 | MR_ITS ---
MRI of the brain Clinical History: History of cerebellar hemorrhagic stroke Technique: Axial and sagittal T1-weighted images were acquired. These were followed by axial T2-weigh ej, diffusion weighted, gradient, and FLAIR images. Findings: There is no acute infarct, acute intracranial hemorrhage, or mass lesion. There are extensi ve chronic white matter changes throughout the white matter bilaterally and in the franklin. There is hem osiderin in the cerebellar vermis extending to the left cerebellar hemisphere, compatible with histor y of prior hemorrhagic stroke. Ventricles and subarachnoid spaces are unremarkable. Orbits are unremarkable. Paranasal sinuses and m astoid air cells are clear. Major intracranial flow voids appear intact. Sagittal midline structures are intact. IMPRESSION: Hemosiderin in the cerebellar vermis and left cerebral hemisphere is consistent with sequelae of prio r hemorrhagic stroke. No acute infarct or acute intracranial hemorrhage evident. Diffuse chronic appearing white matter disease, likely diffuse/severe chronic microvascular ischemic change. Correlate for any possibility of other diffuse white matter disease. Reviewed, dictated and finalized at location . IMPRESSION: Hemosiderin in the cerebellar vermis and left cerebral hemisphere is consistent with sequelae of prior hemorrhagic stroke. No acute infarct or acute intracran ial hemorrhage evident. Diffuse chronic appearing white matter disease, likely diffuse/severe chronic m icrovascular ischemic change. Correlate for any possibility of other diffuse wh ite matter disease.
== END 2022-10-12 10:26 | disposition home or self-care (01) ==
PROVIDERS: PCP Nurse Practitioner Family; Visit Provider Student in an Organized Health Care Education/Training Program
DX: I61.4 Nontraumatic intracerebral hemorrhage in cerebellum (principal); R93.0 Abnormal findings on diagnostic imaging of skull and head, not elsewhere classified
CPT/HCPCS: 70551

== ENCOUNTER 2023-01-28 08:56 | Outpatient (CLI) | payer MEDICARE, SELFPAY ==
[2023-01-28 09:34] LABS: Basophils Absolute Auto 0.1 K/mm3 (0.0-0.1); Basophils Percent Auto 0.6 % (0.2-1.2); Eosinophils Absolute Auto 0.2 K/mm3 (0-0.3); Eosinophils Percent Auto 1.8 % (0-4.4); Hematocrit 46.3 % (37.0-47.0); Hemoglobin 14.8 g/dL (12.0-15.0); Immature Granulocyte Absolute 0.07 K/mm3 (0.00-0.031); Immature Granulocyte Percent A 0.6 % (0-0.5); Lymphocytes Absolute Auto 1.55 K/mm3 (0.9-3.2); Lymphocytes Percent Auto 12.6 % (18.3-44.2); Mean Corpuscular Hemoglobin 30.1 pg (26-34); Mean Corpuscular Volume 94.1 fl (80-100); Mean Platelet Volume 10.8 fl (7.4-10.4); Monocytes Absolute Auto 0.8 K/mm3 (0.1-0.6); Monocytes Percent Auto 6.5 % (2.6-8.5); Neutrophils Absolute Auto 9.6 K/mm3 (1.3-6.7); Neutrophils Percent Auto 77.9 % (45.5-73.1); Platelet Count Result 366 k/mm3 (150-375); Red Blood Count 4.92 M/mm3 (4.2-5.4); Red Cell Distribution Width 14.1 % (11.5-14.5); White Blood Count 12.3 K/mm3 (4.5-10.0)
[2023-01-28 09:49] LABS: Alanine Aminotransferase 19 U/L (6-35); Albumin Level 4.3 g/dL (3.5-5.1); Alkaline Phosphatase 107 U/L (38-126); Anion Gap 6 mmol/L (8-16); Aspartate Amino Transferase 24 U/L (14-36); Bilirubin,Total 0.8 mg/dL (0.2-1.3); Blood Urea Nitrogen 16 mg/dL (7-17); Calcium 9.2 mg/dL (8.4-10.2); Carbon Dioxide 34 mmol/L (22-30); Chloride 102 mmol/L (98-107); Estimated Glomerular Filt Rate > 60; Glucose 110 mg/dL (65-110); Potassium 4.2 mmol/L (3.4-5.0); Sodium 142 mmol/L (137-145)
== END 2023-01-28 08:57 | disposition home or self-care (01) ==
LOC: ANHLAB 08:58
PROVIDERS: PCP Nurse Practitioner Family; Visit Provider Nurse Practitioner Family
DX: R73.02 Impaired glucose tolerance (oral) (principal); I61.4 Nontraumatic intracerebral hemorrhage in cerebellum; M81.0 Age-related osteoporosis without current pathological fracture; I10 Essential (primary) hypertension; E03.9 Hypothyroidism, unspecified
CPT/HCPCS: 36415; 80053; 83036; 84443; 85025

== ENCOUNTER 2023-05-13 09:18 | Outpatient (CLI) | payer MEDICARE, SELFPAY ==
[2023-05-13 09:45] LABS: Basophils Percent Auto 0.5 % (0.2-1.2); Eosinophils Absolute Auto 0.2 K/mm3 (0-0.3); Eosinophils Percent Auto 2.1 % (0-4.4); Hematocrit 45.1 % (37.0-47.0); Hemoglobin 14.2 g/dL (12.0-15.0); Immature Granulocyte Absolute 0.03 K/mm3 (0.00-0.031); Immature Granulocyte Percent A 0.4 % (0-0.5); Lymphocytes Absolute Auto 1.21 K/mm3 (0.9-3.2); Lymphocytes Percent Auto 16.2 % (18.3-44.2); Mean Corpuscular HGB Conc 31.5 g/dl (32-36); Mean Corpuscular Hemoglobin 29.8 pg (26-34); Mean Corpuscular Volume 94.7 fl (80-100); Mean Platelet Volume 10.9 fl (7.4-10.4); Monocytes Absolute Auto 0.7 K/mm3 (0.1-0.6); Monocytes Percent Auto 9.6 % (2.6-8.5); Neutrophils Absolute Auto 5.3 K/mm3 (1.3-6.7); Neutrophils Percent Auto 71.2 % (45.5-73.1); Platelet Count Result 265 k/mm3 (150-375); Red Blood Count 4.76 M/mm3 (4.2-5.4); Red Cell Distribution Width 14.3 % (11.5-14.5); White Blood Count 7.5 K/mm3 (4.5-10.0)
[2023-05-13 10:02] LABS: Alanine Aminotransferase 17 U/L (6-35); Albumin Level 4.3 g/dL (3.5-5.1); Alkaline Phosphatase 70 U/L (38-126); Anion Gap 9 mmol/L (8-16); Aspartate Amino Transferase 26 U/L (14-36); Bilirubin,Total 0.8 mg/dL (0.2-1.3); Blood Urea Nitrogen 13 mg/dL (7-17); Calcium 9.2 mg/dL (8.4-10.2); Carbon Dioxide 30 mmol/L (22-30); Chloride 102 mmol/L (98-107); Cholesterol 184 mg/dL (0-200); Estimated Glomerular Filt Rate > 60; Glucose 110 mg/dL (65-110); HDL Direct 42 mg/dL; Sodium 141 mmol/L (137-145); Triglycerides 157 mg/dL (<150)
[2023-05-13 10:10] LABS: LDL Cholesterol Direct 97 mg/dL
== END 2023-05-13 09:19 | disposition home or self-care (01) ==
PROVIDERS: PCP Nurse Practitioner Family; Visit Provider Nurse Practitioner Family
DX: I61.4 Nontraumatic intracerebral hemorrhage in cerebellum (principal); E78.00 Pure hypercholesterolemia, unspecified; M25.511 Pain in right shoulder; R05.1 Acute cough
CPT/HCPCS: 36415; 80053; 80061; 85025

== ENCOUNTER 2023-06-13 09:07 | Outpatient (CLI) | payer MEDICARE, SELFPAY ==
--- NOTE | ~2023-06-13 | US_ITS ---
EXAMINATION: US_VDOPREFLT_US DATE: 06/13/2023 09:51 INDICATION: Left lower limb edema. Other specified soft tissue disorders. TECHNIQUE: Grayscale ultrasound images without and with compression and Doppler ultrasound images of the left lower extremity veins were obtained. COMPARISON: None. FINDINGS: The visualized portions of left common femoral vein, profunda (deep) femoral vein, femoral vein, popl iteal vein, peroneal veins, and posterior tibial veins are patent. Left greater saphenous vein measur es 2 mm in the upper thigh, 3 mm in the lower thigh, and 2 mm in the calf. Left small saphenous vein measures 3 mm in the upper calf and 2 mm in the lower calf. No reflux. IMPRESSION: 1. No deep venous thrombosis. 2. No reflux. Reviewed, dictated and finalized at location A. VERY MANAGER
== END 2023-06-13 09:08 | disposition home or self-care (01) ==
PROVIDERS: PCP Nurse Practitioner Family; Visit Provider Nurse Practitioner Family
DX: M79.89 Other specified soft tissue disorders (principal)
CPT/HCPCS: 93971

== ENCOUNTER 2023-07-03 07:04 | Outpatient (CLI) | payer MEDICARE, SELFPAY ==
--- NOTE | ~2023-07-03 | US_ITS ---
EXAMINATION: US art doppler w press MILLIE DATE: 07/03/2023 09:00 INDICATION: Other specified soft tissue disorders. TECHNIQUE: Segmental pressures and plethysmographic and Doppler waveforms of the brachial and lower e xtremity arteries were obtained. COMPARISON: None. FINDINGS: Right and left brachial artery pressures of 140 mm Hg and 135 mm Hg, respectively, are concordant (no rmal difference <= 30 mmHg). The right high-thigh pressure index is 0.86 (normal > 1.2). The right ankle-brachial index (SCOUT) is 0 .64 (normal >= 0.9-1.0). The right great toe-brachial index (TBI) is 0.32 (normal >= 0.65). The right lower extremity segmental pressure gradients are normal (normal gradients <= 20-30 mmHg between joanna cent levels on the same leg or the same levels on the two legs). Arterial Doppler waveforms are bipha sic in common femoral artery, triphasic in superficial femoral artery and popliteal artery, and multi phasic in posterior tibial artery and dorsalis pedis. The left high-thigh pressure index is 0.81. The left SCOUT is 0.69. The left TBI is 0.48. The left lowe r extremity segmental pressure gradients are normal. Arterial Doppler waveforms are multiphasic from common femoral artery to the ankle. IMPRESSION: 1. Moderately decreased ABIs, consistent with arterial occlusive disease, likely predominantly in the aortoiliofemoral distribution. Reviewed, dictated and finalized at location E. ITY SYSTEMS ENGINEER IMPRESSION: 1. Moderately decreased ABIs, consistent with arterial occlusive disease, likel y predominantly in the aortoiliofemoral distribution.
== END 2023-07-03 07:05 | disposition home or self-care (01) ==
PROVIDERS: PCP Nurse Practitioner Family; Visit Provider Nurse Practitioner Family
DX: M79.89 Other specified soft tissue disorders (principal)
CPT/HCPCS: 93923

== ENCOUNTER 2023-12-02 11:05 | Outpatient (CLI) | payer MEDICARE, SELFPAY ==
[2023-12-02 12:25] LABS: Alanine Aminotransferase 22 U/L (6-35); Albumin Level 4.4 g/dL (3.5-5.1); Alkaline Phosphatase 74 U/L (38-126); Anion Gap 7 mmol/L (4-12); Aspartate Amino Transferase 40 U/L (14-36); Bilirubin,Total 0.8 mg/dL (0.2-1.3); Blood Urea Nitrogen 17 mg/dL (7-17); Calcium 9.4 mg/dL (8.4-10.2); Carbon Dioxide 30 mmol/L (22-30); Chloride 106 mmol/L (98-107); Estimated Glomerular Filt Rate > 60; Glucose 95 mg/dL (65-110); Potassium 4.5 mmol/L (3.4-5.0); Sodium 143 mmol/L (137-145)
[2023-12-02 16:26] LABS: Hemoglobin A1C 5.9 % (<5.7)
== END 2023-12-02 11:06 | disposition home or self-care (01) ==
PROVIDERS: PCP Nurse Practitioner Family; Visit Provider Nurse Practitioner Family
DX: E55.9 Vitamin D deficiency, unspecified (principal); E78.00 Pure hypercholesterolemia, unspecified; I10 Essential (primary) hypertension; M79.89 Other specified soft tissue disorders; R73.02 Impaired glucose tolerance (oral); J44.9 Chronic obstructive pulmonary disease, unspecified
CPT/HCPCS: 36415; 80053; 83036

== ENCOUNTER 2024-10-06 09:55 | Outpatient (CLI) | payer MEDICARE, SELFPAY ==
[2024-10-06 09:37] LABS: Basophils Absolute Auto 0.1 K/mm3 (0.0-0.1); Basophils Percent Auto 0.5 % (0.2-1.2); Eosinophils Absolute Auto 0.3 K/mm3 (0-0.3); Eosinophils Percent Auto 2.8 % (0-4.4); Hematocrit 42.4 % (37.0-47.0); Hemoglobin 13.9 g/dL (12.0-15.0); Immature Granulocyte Absolute 0.05 K/mm3 (0.00-0.031); Immature Granulocyte Percent A 0.4 % (0-0.5); Lymphocytes Absolute Auto 1.32 K/mm3 (0.9-3.2); Lymphocytes Percent Auto 11.3 % (18.3-44.2); Mean Corpuscular HGB Conc 32.8 g/dl (32-36); Mean Corpuscular Hemoglobin 29.9 pg (26-34); Mean Corpuscular Volume 91.2 fl (80-100); Mean Platelet Volume 11.5 fl (7.4-10.4); Monocytes Absolute Auto 0.8 K/mm3 (0.1-0.6); Monocytes Percent Auto 7.2 % (2.6-8.5); Neutrophils Absolute Auto 9.1 K/mm3 (1.3-6.7); Neutrophils Percent Auto 77.8 % (45.5-73.1); Platelet Count Result 249 k/mm3 (150-375); Red Blood Count 4.65 M/mm3 (4.2-5.4); Red Cell Distribution Width 14.5 % (11.5-14.5); White Blood Count 11.7 K/mm3 (4.5-10.0)
--- OUTSIDE RECORDS SUMMARY | 2024-10-06 09:46 | XMS_ITS | Clinical Summary ---
Author Organization [facility] Address [facility] [place] [address] Care Team Providers Care Plasterer Tender Name Role Phone Jas Easley DO Primary Care Provider [phone] Allergies No known active allergies Medications amLODIPine 10 MG tablet Take 10 mg by mouth daily. 11/23/2021 Active omeprazole 40 MG capsule Take 40 mg by mouth 2 (two) times daily. 11/22/2021 Active rosuvastatin 10 MG tablet Take 10 mg by mouth nightly at bedtime. 11/23/2021 Active traZODone 50 MG tablet Take 50 mg by mouth nightly as needed for Sleep. 11/22/2021 Active valsartan 160 MG tablet Take 160 mg by mouth daily. 11/23/2021 Active levothyroxine 25 MCG tablet Take 25 mcg by mouth daily. Active Potassium Gluconate 550 (90 K) MG Tab Take 1 tablet by mouth daily. Active Vitamin D3, cholecalciferol , 2000 UNIT Tab tablet Take 2,000 Units by mouth daily. Active multiple vitamins-minera ls (OCUVITE ADULT 50+) Cap Take 1 capsule by mouth daily. Active multi vitamin/mineral s tablet Take 1 tablet by mouth daily. Active aspirin EC (ASPIRIN EC) 81 MG tablet Take 81 mg by mouth nightly at bedtime. Active Calcium Carbonate (CALCIUM 600 OR) Take 600 mg by mouth daily. Active Social History Tobacco Use Types Packs/Day Years Used Date Smoking Tobacco: Every Day Cigarettes Smokeless Tobacco: Never Alcohol Use Standard Drinks/Week Comments Yes 0 (1 standard drink = 0.6 oz pur e alcohol) socially Comments No Sex and Gender Information Value Date Recorded Sex Assigned at Not on file Legal Sex Female 12:50 PM CDT Gender Identity Not on file Sexual Orientation Not on file Last Filed Vital Signs Vital Sign Reading Time Taken Comments Blood Pressure 156/93 11/28/2021 2:29 PM CDT Pulse 55 11/28/2021 2:29 PM CDT Temperature 36.2 C (97.2 F) 11/28/2021 2:29 PM CDT Respiratory Rate 18 11/28/2021 2:29 PM CDT Oxygen Saturation 95% 11/28/2021 2:29 PM CDT Inhaled Oxygen Concentration - - Weight 67.6 kg (149 lb 0.5 oz) 11/28/2021 12:57 PM CDT Height 160 cm (5' 3 ) 11/28/2021 11:57 AM CDT Body Mass Index 26.4 11/28/2021 11:57 AM CDT Plan of Treatment Health Maintenance Due Date Last Done Comments DTaP, Tdap and Td Vaccines (1 - Tdap) 1959 Annual Medicare Wellness Visit 01/10/2004 RSV Immunization or 60+ Years (1 - 1-dose 75+ series) 2014 Zoster Vaccines (2 of 3) 07/25/2014 05/30/2014 Pneumococcal Vaccine: 50+ Years (2 of 2 - PCV) 03/29/2022 03/29/2021, 03/30/2020 COVID-19 Vaccine ( - season) 2024 10/15/2021, 04/19/2021, 09/04/2020, Additional history exists Meningococcal B Vaccine Aged Out No l onger eligible based on patient's age to complete this topic Meningococcal Vaccine Aged Out No dominga marlys eligible based on patient's age to complete this topic RSV Immunizations Under 20 Months Aged Out No longer eligible based on patient's age to complete this topic Insurance [facility] Advance Directives Documents on File Type Date Recorded Patient Mixed Livestock Farm Worker Expl anation Advance Directives and Living Will 11/29/2021 12:29 PM 11/05/2021 POLST Care Teams Plasterer Tender Relationship Specialty Start Date End Date Jas Easley DO [address] [place] [id number] PCP - General INTERNAL MEDICINE 11/28/21
--- OUTSIDE RECORDS SUMMARY | 2024-10-06 09:46 | XMS_ITS | Clinical Summary ---
Author Organization [facility] Address [address] [facility] [place] [address] Care Team Providers Care Timber Harvester Operator Name Role Phone Unavailable Primary Care Provider Unavailabl e Source Comments [facility],non-owned Affiliates and Associated Physician Practices is amultiple site organization consisting of ambulatory clinics and hospital sitesin [place], [place], [place] and [place]. This disclosure is being madepursuant to the Care Everywhere program and may not contain all information available regarding this patient. 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 Gender Identity Not on file Sexual Orientation Not on file Plan of Treatment Health Maintenance Due Date Last Done Comments BONE DENSITY TESTING 1940 DTAP/TDAP/TD VACCINES (1 - Tdap) 1958 PNEUMOCOCCAL VACCINE 50+ (1 of 1 - PCV) 1989 ZOSTER VACCINE (1 of 2) 1989 Respiratory Syncytial Virus (RSV) Vaccine Pt: or over 60 yrs (1 - 1-dose 75+ series) 2014 COVID-19 VACCINE ( - 2023-2 5 season) 2024 DEPRESSION SCREENING 06/16/2024 INFLUENZA VACCINE (Season Ended) 2025 HEPATITIS B VACCINE Aged Out No longe r eligible based on patient's age to complete this topic HIB VACCINE Aged Out No longer eligi ble based on patient's age to complete this topic HPV VACCINE Aged Out No longer eligi ble based on patient's age to complete this topic MENINGOCOCCAL (Group B) VACC INE SHARED DECISION-MAKING Aged Out No longer eligibl e based on patient's age to complete this topic MENINGOCOCCAL GROUPS A/C/Y/W VACCINE Aged Out No longer eligible b ased on patient's age to complete this topic
--- OUTSIDE RECORDS SUMMARY | 2024-10-06 09:46 | XMS_ITS | Clinical Summary ---
Author Organization [facility] Address [address] [place] [address] Phone Care Team Providers Care Research Administrator Name Role Phone Jas Easley DO Primary Care Provider [phone] Allergies No known active allergies Medications amLODIPine (NORVASC) 10 mg tablet Take 10 mg by mouth daily. Active calcium as carbonate (CHILDREN'S PEPTO) 400 mg (160 mg elemental) Tablet, Chewable Take by mouth 1 time daily as needed. Active levothyroxine 25 mcg tablet Take 25 mcg by mouth daily. Active omeprazole (PriLOSEC) 40 mg Capsule, Delayed Release(E.C.) Take 40 mg by mouth daily. Active rosuvastatin (CRESTOR) 10 mg tablet Take 10 mg by mouth daily. Active traZODone (DESYREL) 50 mg tablet Take 50 mg by mouth daily at bedtime. Active valsartan (DIOVAN) 80 mg tablet Take 1 Tablet (80 mg) by mouth daily. 1 2 Active thiamine (VITAMIN B-1) 100 mg tablet Take 1 Tablet (100 mg) by mouth daily. 2 Active megestroL (MEGACE) 400 mg/10 mL (10 mL) Suspension suspension Take 320 mg by mouth 2 times daily. 2 Active heparin 5,000 unit/mL Solution Inject 1 mL (5,000 Units) by subcutaneous injection every 12 hours. 2 Active acetaminophen (TYLENOL) 325 mg tablet Take 2 Tablets (650 mg) by mouth every 6 hours as needed for Pain. 2 Active ondansetron (ZOFRAN ODT) 4 mg Tablet, Rapid Dissolve Take 1 Tablet (4 mg) by mouth every 8 hours as needed for Nausea/Emesis. Dissolve tablet on top of tongue, then swallow with saliva. 2 Active multivitamin,ca lcium,minerals, iron,folic acid (THERA-M,THERA- M PLUS) 9 mg iron-400 mcg Tablet Take 1 Tablet by mouth daily. 2 Active QUEtiapine (SEROquel) 25 mg tablet Take 1 Tablet (25 mg) by mouth daily at bedtime. 1 2 Active sennosides-docu sate sodium (SENNA-S) 8.6-50 mg tablet Take 2 Tablets by mouth 2 times daily. 2 Active polyethylene glycol (MIRALAX) 17 gram Powder in Packet Take 1 Packet (17 Grams) by mouth every 12 hours. 2 Active Active Problems Problem Noted Date Diagnosed Date Protein-calorie malnutrition, severe 11/29/2021 Cerebellar bleed Accelerated hypertension On tube feeding diet Family History Medical History Relation Name Comments Stroke Neg Hx Social History Tobacco Use Types Packs/Day Years Used Date Smoking Tobacco: Every Day Cigarettes Comments No Sex and Gender Information Value Date Recorded Sex Assigned at Not on file Legal Sex Female 2:04 PM CDT Gender Identity Not on file Sexual Orientation Not on file Last Filed Vital Signs Vital Sign Reading Time Taken Comments Blood Pressure 131/52 12/13/2021 8:50 AM CDT Pulse 61 12/13/2021 8:50 AM CDT Temperature 36.7 C (98 F) 12/13/2021 8:50 AM CDT Respiratory Rate 18 12/12/2021 8:37 PM CDT Oxygen Saturation 98% 12/13/2021 8:50 AM CDT Inhaled Oxygen Concentration - - Weight 67 kg (147 lb 11.2 oz) 12/11/2021 5:06 AM CDT Height 160 cm (5' 3 ) 11/29/2021 8:35 AM CDT Body Mass Index 26.16 11/29/2021 8:35 AM CDT Plan of Treatment Health Maintenance Due Date Last Done Comments DTAP/TDAP/TD VACCINES (1 - Tdap) 1959 PNEUMOCOCCAL VACCINE 50+ YEARS (1 of 2 - PCV) 01/09/19 58 ZOSTER VACCINE (1 of 2) 1989 OSTEOPOROSIS SCREENING 01/10/2004 RSV VACCINE (60+ or ) (1 - 1-dose 75+ series) 2014 INFLUENZA VACCINE (#1) 2024 Insurance [facility] [id number] Advance Directives For more information, please contact: [phone] * Full Code (Latest Code Status on File) Date Activated Date Inactivated Comments 11/29/2021 1:07 AM 12/13/2021 6:09 PM Care Teams Research Administrator Relationship Specialty Start Date End Date Jas Easley DO [address] [facility] [address] [place] [address] PCP - General Internal Medicine 11/28/21
[2024-10-06 10:17] LABS: Anion Gap 28 mmol/L (4-12); Carbon Dioxide 11 mmol/L (22-30); Chloride 103 mmol/L (98-107); Potassium 4.2 mmol/L (3.4-5.0); Sodium 142 mmol/L (137-145)
--- OUTSIDE RECORDS SUMMARY | 2024-10-06 11:12 | XMS_ITS | Clinical Summary ---
Author Organization [facility] Address [address] [place] [address] Phone Care Team Providers Care Truck Farmer Name Role Phone Jas Easley DO Primary Care Provider [phone] Allergies No known active allergies Medications amLODIPine [...] series) 2014 INFLUENZA VACCINE (#1) [address] [facility] [id number] Advance Directives For more information, please contact: [phone] * Full Code (Latest Code Status on File) Date Activated Date Inactivated Comments 11/29/2021 1:07 AM 12/13/2021 6:09 PM Care Teams Truck Farmer Relationship Specialty Start Date End Date Jas Easley DO [address] [facility] [address] [place] [address] PCP - General Internal Medicine 11/28/21
--- OUTSIDE RECORDS SUMMARY | 2024-10-06 11:12 | XMS_ITS | Clinical Summary ---
Author Organization [facility] Address [facility] [place] [address] Care Team Providers Care Horse Buyer Name Role Phone Jas Easley DO Primary Care Provider [phone] Allergies No known active allergies Medications amLODIPine [...] patient's age to complete this topic Insurance [facility] Advance Directives Documents on File Type Date Recorded Patient Hiv Counselor Expl anation Advance Directives and Living Will 11/29/2021 12:29 PM 11/05/2021 POLST Care Teams Horse Buyer Relationship Specialty Start Date End Date Jas Easley DO [address] [place] [id number] PCP - General INTERNAL MEDICINE 11/28/21
--- OUTSIDE RECORDS SUMMARY | 2024-10-06 11:12 | XMS_ITS | Clinical Summary ---
Author Organization [facility] Address [address] [place] [address] Care Team Providers Care Certified Medical Coding Specialist Name Role Phone Unavailable Primary Care Provider Unavailabl e Source Comments [facility],non-owned Affiliates and Associated Physician Practices is amultiple site organization consisting of ambulatory clinics and hospital sitesin [place], [place], [place] and [place]. This disclosure is being madepursuant to the Care Everywhere program and may not contain all information available regarding this patient. 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
[2024-10-06 11:18] LABS: Hemoglobin A1C 6.3 % (<5.7)
[2024-10-06 14:46] LABS: Albumin Level 3.9 g/dL (3.5-5.1); Cholesterol 177 mg/dL (0-200); Triglycerides 131 mg/dL (<150)
[2024-10-07 09:48] LABS: Blood Urea Nitrogen 21 mg/dL (7-17)
[2024-10-07 09:49] LABS: Calcium 9.1 mg/dL (8.4-10.2); Estimated Glomerular Filt Rate > 60; Glucose 103 mg/dL (65-110)
[2024-10-07 09:50] LABS: Alanine Aminotransferase 18 U/L (6-35); Aspartate Amino Transferase 22 U/L (14-36); Bilirubin,Total 0.6 mg/dL (0.2-1.3)
[2024-10-07 09:51] LABS: Total Protein 6.3 g/dL (6.3-8.2)
[2024-10-07 09:52] LABS: LDL Cholesterol Direct 94 mg/dL
[2024-10-07 09:53] LABS: Alkaline Phosphatase 93 U/L (38-126); HDL Direct 40 mg/dL
[2024-10-09 13:58] LABS: NIL 0.01 IU/mL; Quantiferon TB Plus, 1T NEGATIVE (NEGATIVE)
== END 2024-10-06 09:56 | disposition home or self-care (01) ==
PROVIDERS: PCP Nurse Practitioner Family; Visit Provider Nurse Practitioner Family
DX: I99.9 Unspecified disorder of circulatory system (principal); J44.9 Chronic obstructive pulmonary disease, unspecified; I10 Essential (primary) hypertension; H35.30 Unspecified macular degeneration; E78.00 Pure hypercholesterolemia, unspecified; E11.9 Type 2 diabetes mellitus without complications; E55.9 Vitamin D deficiency, unspecified; Z11.1 Encounter for screening for respiratory tuberculosis
CPT/HCPCS: 36415; 80053; 80061; 83036; 84443; 85025; 86480